=== PATIENT | female | born 1970 | race Caucasian/White ===

== ENCOUNTER 2025-04-06 06:05 | Day surgery (SDC) | payer OTHER, SELFPAY ==
[2025-03-23 14:18] VITALS: BMI 21.0
[2025-04-06] VITALS (8 sets, daily range): BP systolic 114–131; BP diastolic 66–87; BMI 21.0
[2025-04-06] MEDS: NORMOSOL-R/PLASMALYTE-A 1000 IV (08:53)
[2025-04-06] MEDS: EMEND 40 MG PO (08:56)
[2025-04-06] MEDS: TYLENOL 1000 MG PO (08:56)
[2025-04-06] MEDS: TRANSDERM-SCOP 1 PATCH TRANSDERM (08:57)
--- NOTE | 2025-04-06 14:02 | W.IMMPOSTOP ---
Surgical Immed Post Op Note
-
Primary Surgeon: Marvel Orellana MD
Assisting Surgeon:
Pre-op Diagnosis: left knee medial meniscus tear
Post-op Diagnosis: left knee medial meniscus tear
Procedure Performed: arthroscopic left knee partial medial meniscectomy
Anesthesia Type: general
Specimen / Cultures: none
Estimated Blood Loss: 1mL
Complications: none apparent
Operative Findings: degenerative tear anterior horn medial meniscus; no tear of posterior horn
Tourniquet time: 30 minutes @ 250 mmHg
Dictation#:[id number]
== END 2025-04-06 14:42 | disposition home or self-care (01) ==
LOC: SDS 06:05
PROVIDERS: ATTENDING PHYSICIAN Student in an Organized Health Care Education/Training Program; FAMILY PHYSICIAN Family Medicine
DX: S83.232A Complex tear of medial meniscus, current injury, left knee, initial encounter (principal); X58.XXXA Exposure to other specified factors, initial encounter; M17.12 Unilateral primary osteoarthritis, left knee
CPT/HCPCS: 29881; 36415; 93005

== ENCOUNTER → 2025-05-17 10:30 | Outpatient (REF) | payer OTHER, SELFPAY | LOC: RAD 10:30 | PROVIDERS: ATTENDING PHYSICIAN Student in an Organized Health Care Education/Training Program; FAMILY PHYSICIAN Family Medicine | DX: M71.22 Synovial cyst of popliteal space [Baker], left knee (principal) | CPT/HCPCS: 93971 ==